=== PATIENT | female | born 1935 | race Caucasian/White ===

== ENCOUNTER → 2017-03-07 | Outpatient (CLI) | payer MEDICARE, BC ==
[~2017-03-07] MED LIST: ASPIRIN 32325 MG/TAB PO; ASPIRIN E.C. 8181 MG PO; CELEBREX 200MG200 MG PO; COZAAR100 MG PO; CRESTOR10 MG PO; CRESTOR20 MG PO; GLUCOPHAGE1000 MG PO; LEVAQUIN 5500 MG/TA1 PO; LEVOTHYROXIN0.112 MG PO; LOPRESSOR 225 MG/TAB PO; LYRICA 150MG C150 MG PO; MAREPA1200 MG PO; NEXIUM 40MG40 MG PO; NEXIUM I.V. 40M40 MG IV; NORVASC 5MG5 MG/TAB PO; OMEGA 31000 MG PO; PAXIL 20MG20 MG PO; PLAVIX 75MG TAB75 MG PO; PREDNISONE10 MG PO; PRILOSEC 20MG20 MG PO; PROBIOTIC FORMU1 CAP PO; SYSTANE ULTRA OP; TIROSINT125 MCG PO; TOPROL XL 25MG25 MG PO; TRIAMCINOLONE0.025%; TRIAMTERENE AND1 TA1 PO; VENTOLIN0.09 MG IH; VITAMIN D 1001000 IU PO
== END ==
LOC: COL.VAS 10:54
DX: I65.23 Occlusion and stenosis of bilateral carotid arteries (principal)

== ENCOUNTER → 2018-03-18 | Outpatient (CLI) | payer MEDICARE, BC | LOC: COL.VAS 12:34 | DX: I65.23 Occlusion and stenosis of bilateral carotid arteries (principal) ==

== ENCOUNTER 2018-04-10 08:00 | Outpatient (RCR) | payer MEDICARE, BC ==
[2018-04-12] MEDS ORDERED: COZAAR100 MG PO (18:08)
[2018-04-12] MEDS ORDERED: LIPITOR 40MG TA40 MG PO (18:08)
[2018-04-12] MEDS ORDERED: B-121000 MCG PO (18:10)
[2018-04-12] MEDS ORDERED: GINGER500 MG PO (18:10)
[2018-04-12] MEDS ORDERED: FLORAJEN A20 Billion (18:10)
[2018-04-15] MEDS ORDERED: LEVOXYL0.1 MG PO (11:00)
== END 2018-05-28 | disposition home or self-care (01) ==
LOC: MKS.ESL.PT
DX: H81.12 Benign paroxysmal vertigo, left ear (principal)
CPT/HCPCS: G8981-GP; G8982-GP; G8983-GP

== ENCOUNTER 2018-04-12 17:35 | Inpatient (IN) | payer MEDICARE, BC ==
[~2018-04-12] VITALS: Ht 152.4 cm; Wt 96.3 kg
[2018-04-12] VITALS (59 sets, daily range): BP systolic 144; BP diastolic 70; PULSE 70; TEMP 97.8; O2SAT 92–97
[2018-04-12] MEDS ORDERED: LIPITOR 40MG TA40 MG PO (18:08)
[2018-04-12] MEDS ORDERED: COZAAR100 MG PO (18:08)
[2018-04-12 18:09] LABS: BASO % 0.4 % (0.0-2.0); EOS # 0.2 (0.0-0.7); EOS % 2.2 % (0-4.0); GRAN # 4.6 (1.4-6.5); GRAN % 60.2 % (42.2-75.2); HEMATOCRIT 33.3 % (37.0-47.0); HEMOGLOBIN 11.6 g/dl (12.5-16.0); LYMPH # 1.8 (1.2-3.4); LYMPH % 23.1 % (20.0-51.0); MEAN CELL VOLUME 87 fl (80.0-100.0); MEAN CORPUSCULAR HEMOGLOBIN 30 pg (27.0-31.0); MEAN CORPUSCULAR HGB CONC 35 g/dl (33.0-37.0); MEAN PLATELET VOLUME 10.1 fl (7.4-10.4); MONO % 13.6 % (1.7-9.3); PLATELET COUNT 263 K/mm3 (130-400); RED BLOOD COUNT 3.84 M/mm3 (4.10-5.30); REDCELL DISTRIBUTION WIDTH-CV 13.9 % (11.5-14.5)
[2018-04-12] MEDS ORDERED: B-121000 MCG PO (18:10)
[2018-04-12] MEDS ORDERED: GINGER500 MG PO (18:10)
[2018-04-12] MEDS ORDERED: FLORAJEN A20 Billion (18:10)
[2018-04-12 18:22] LABS: ALANINE AMINOTRANSFERASE 75 U/L (9-52); ALBUMIN 4.1 gm/dL (3.5-5.0); ALKALINE PHOSPHATASE 46 U/L (50-136); ANION GAP 12 mmol/L (7-16); AST,SGOT 71 U/L (15-37); BILIRUBIN,TOTAL 0.5 mg/dL (0.0-1.0); BLOOD UREA NITROGEN 30 mg/dL (7-17); CALCIUM 8.6 mg/dL (8.4-10.2); CARBON DIOXIDE 20 mmol/L (22-30); CREATINE KINASE 236 U/L (30-135); CREATININE, serum 0.98 mg/dL (0.52-1.25); GLUCOSE 118 mg/dL (74-106); MAGNESIUM 1.4 mg/dL (1.6-2.3); POTASSIUM 4.8 mmol/L (3.4-5.0); TOTAL PROTEIN 7.2 gm/dL (6.4-8.2)
[2018-04-12 18:39] LABS: CHLORIDE 88 mmol/L (98-107); SODIUM 119 mmol/L (137-145); TROPONIN-I < 0.012 ng/mL (0.000-0.034)
[2018-04-12 22:44] LABS: TSH w REFLEX 0.116 uIU/mL (0.465-4.680)
[2018-04-13] VITALS (538 sets, daily range): BP systolic 121–158; BP diastolic 49–76; PULSE 56–84; TEMP 97.9–98.9; O2SAT 84–99
[2018-04-13 00:29] LABS: SODIUM 127 mmol/L (137-145)
[2018-04-13 00:46] LABS: TROPONIN-I < 0.012 ng/mL (0.000-0.034)
[2018-04-13 05:35] LABS: BASO % 0.4 % (0.0-2.0); EOS # 0.2 (0.0-0.7); EOS % 2.4 % (0-4.0); GRAN # 3.7 (1.4-6.5); GRAN % 55.2 % (42.2-75.2); HEMOGLOBIN 12.1 g/dl (12.5-16.0); LYMPH # 1.9 (1.2-3.4); LYMPH % 27.8 % (20.0-51.0); MEAN CELL VOLUME 88 fl (80.0-100.0); MEAN CORPUSCULAR HEMOGLOBIN 31 pg (27.0-31.0); MEAN CORPUSCULAR HGB CONC 35 g/dl (33.0-37.0); MEAN PLATELET VOLUME 9.7 fl (7.4-10.4); MONO # 0.9 (0.1-0.6); MONO % 13.8 % (1.7-9.3); PLATELET COUNT 245 K/mm3 (130-400); RED BLOOD COUNT 3.97 M/mm3 (4.10-5.30); REDCELL DISTRIBUTION WIDTH-CV 13.8 % (11.5-14.5)
[2018-04-13 05:36] LABS: HEMATOCRIT 34.9 % (37.0-47.0)
[2018-04-13 05:46] LABS: BILIRUBIN,TOTAL 0.7 mg/dL (0.0-1.0); CALCIUM 9.4 mg/dL (8.4-10.2); CREATININE, serum 0.81 mg/dL (0.52-1.25); TOTAL PROTEIN 7.1 gm/dL (6.4-8.2)
[2018-04-14 00:17] VITALS: BP 115/81; PULSE 78; TEMP 98.2
[2018-04-14 04:36] VITALS: BP 142/67; PULSE 69; TEMP 97.8
[2018-04-14 07:14] LABS: BILIRUBIN,TOTAL 0.5 mg/dL (0.0-1.0); CALCIUM 9.5 mg/dL (8.4-10.2); CREATININE, serum 1.01 mg/dL (0.52-1.25); MAGNESIUM 1.7 mg/dL (1.6-2.3); TOTAL PROTEIN 7.1 gm/dL (6.4-8.2)
[2018-04-14 12:26] VITALS: BP 153/58; PULSE 72; TEMP 98.2
[2018-04-14 16:12] VITALS: BP 148/56; PULSE 71; TEMP 97.8
[2018-04-14 19:59] VITALS: BP 133/54; PULSE 73; TEMP 98.5
[2018-04-14 23:39] VITALS: BP 118/61; PULSE 74; TEMP 98.4
[2018-04-15 04:18] VITALS: BP 109/65; PULSE 64; TEMP 97.9
[2018-04-15 07:18] VITALS: BP 100/52; PULSE 108; TEMP 98.1
[2018-04-15 07:26] LABS: ALBUMIN 3.6 gm/dL (3.5-5.0); BILIRUBIN,TOTAL 0.5 mg/dL (0.0-1.0); CALCIUM 8.8 mg/dL (8.4-10.2); CREATININE, serum 0.88 mg/dL (0.52-1.25); TOTAL PROTEIN 6.6 gm/dL (6.4-8.2)
[2018-04-15] MEDS ORDERED: LEVOXYL0.1 MG PO (11:00)
== END 2018-04-15 12:16 | disposition home or self-care (01) | DRG 309 ==
LOC: COL.ER 17:35 → ICU 19:37 → MEDICAL 04-13 13:23
PROVIDERS: Emergency Medicine; Internal Medicine
DX: R00.1 Bradycardia, unspecified (principal); Z68.41 Body mass index [BMI] 40.0-44.9, adult; E87.1 Hypo-osmolality and hyponatremia; I69.354 Hemiplegia and hemiparesis following cerebral infarction affecting left non-dominant side; I10 Essential (primary) hypertension; I08.0 Rheumatic disorders of both mitral and aortic valves; E11.42 Type 2 diabetes mellitus with diabetic polyneuropathy; E66.01 Morbid (severe) obesity due to excess calories; E83.42 Hypomagnesemia
CPT/HCPCS: J1650; J3475; J7030

== ENCOUNTER → 2018-12-10 | Outpatient (CLI) | payer MEDICARE, BC ==
[~2018-12-10] MED LIST changes: +B-121000 MCG PO; +FLORAJEN A20 Billion; +GINGER500 MG PO; +LEVOXYL0.1 MG PO; +LIPITOR 40MG TA40 MG PO
== END ==
LOC: COL.RAD 12-04 13:30
DX: N18.3 Chronic kidney disease, stage 3 (moderate) (principal)

== ENCOUNTER → 2019-03-24 | Outpatient (CLI) | payer MEDICARE, BC | LOC: COL.VAS 12:26 | DX: I65.23 Occlusion and stenosis of bilateral carotid arteries (principal) ==

== ENCOUNTER 2019-05-26 09:15 | Outpatient (RCR) | payer MEDICARE, BC | END 2019-05-26 15:29 | disposition home or self-care (01) | LOC: MKS.ESL.PT 09:15 | DX: R26.81 Unsteadiness on feet (principal) ==

== ENCOUNTER 2020-09-25 11:43 | Emergency (ER) | payer MEDICARE, BC ==
[~2020-09-25] VITALS: Ht 152.4 cm; Wt 86.4 kg
[2020-09-25 12:07] VITALS: TEMP 98.5
[2020-09-25 12:46] LABS: BASO % 0.2 % (0.0-2.0); EOS % 0.6 % (0-4.0); GRAN # 3.7 (1.4-6.5); GRAN % 67.5 % (42.2-75.2); HEMATOCRIT 37.5 % (37.0-47.0); HEMOGLOBIN 12.9 g/dl (12.5-16.0); LYMPH # 1.1 (1.2-3.4); LYMPH % 19.9 % (20.0-51.0); MEAN CELL VOLUME 92 fl (80.0-100.0); MEAN CORPUSCULAR HEMOGLOBIN 32 pg (27.0-31.0); MEAN CORPUSCULAR HGB CONC 34 g/dl (33.0-37.0); MEAN PLATELET VOLUME 9.2 fl (7.4-10.4); MONO # 0.6 (0.1-0.6); MONO % 11.4 % (1.7-9.3); PLATELET COUNT 266 K/mm3 (130-400); RED BLOOD COUNT 4.09 M/mm3 (4.10-5.30); REDCELL DISTRIBUTION WIDTH-CV 14.7 % (11.5-14.5)
[2020-09-25 12:59] LABS: ALANINE AMINOTRANSFERASE 29 U/L (4-34); ALBUMIN 4.7 gm/dL (3.5-5.0); ALKALINE PHOSPHATASE 52 U/L (50-136); ANION GAP 11 mmol/L (7-16); AST,SGOT 38 U/L (15-37); BILIRUBIN,TOTAL 0.8 mg/dL (0.0-1.0); BLOOD UREA NITROGEN 17 mg/dL (7-17); CALCIUM 9.8 mg/dL (8.4-10.2); CARBON DIOXIDE 23 mmol/L (22-30); CHLORIDE 98 mmol/L (98-107); CREATININE, serum 0.81 (0.52-1.25); GLUCOSE 115 mg/dL (74-106); SODIUM 132 mmol/L (137-145)
[2020-09-25 13:18] LABS: TROPONIN-I < 0.012 ng/mL (0.000-0.035)
[2020-09-25 13:47] LABS: COLLECTION METHOD CATHETER
[2020-09-25 13:53] LABS: PH 5 (5-8); SQUAMOUS EPITHELIAL 0-2 /hpf; URINE APPEARANCE Clear; URINE BACTERIA None Seen /hpf; URINE BILIRUBIN Negative (NEGATIVE); URINE BLOOD 1+ (NEGATIVE); URINE COLOR Straw; URINE GLUCOSE Negative (NEGATIVE); URINE KETONE Negative (NEGATIVE); URINE LEUKOCYTE ESTERASE Negative (NEGATIVE); URINE NITRATE Negative (NEGATIVE); URINE PROTEIN(semi-quant) 1+ (NEGATIVE); URINE RBC 0-2 /hpf; URINE UROBILINOGEN Negative (NEGATIVE)
[2020-09-25 18:30] VITALS: BP 161/96; PULSE 96
== END 2020-09-25 18:30 | disposition short-term general hospital (02) ==
LOC: COL.ER 11:43 → SURG 15:06 → COL.ER 15:06
PROVIDERS: Emergency Medicine
DX: M48.061 Spinal stenosis, lumbar region without neurogenic claudication (principal); E87.1 Hypo-osmolality and hyponatremia; L30.4 Erythema intertrigo; I10 Essential (primary) hypertension; E03.9 Hypothyroidism, unspecified; Z79.890 Hormone replacement therapy; E78.5 Hyperlipidemia, unspecified; G62.9 Polyneuropathy, unspecified; I08.0 Rheumatic disorders of both mitral and aortic valves; E11.9 Type 2 diabetes mellitus without complications; E66.01 Morbid (severe) obesity due to excess calories; M19.90 Unspecified osteoarthritis, unspecified site; Z86.718 Personal history of other venous thrombosis and embolism; Z86.73 Personal history of transient ischemic attack (TIA), and cerebral infarction without residual deficits; Z79.02 Long term (current) use of antithrombotics/antiplatelets; Z88.2 Allergy status to sulfonamides; Z20.822 Contact with and (suspected) exposure to COVID-19; Z68.37 Body mass index [BMI] 37.0-37.9, adult
CPT/HCPCS: J7030; Q9967

== ENCOUNTER → 2022-09-12 | Outpatient (CLI) | payer MEDICARE, BC ==
[~2022-09-12] MED LIST changes: +CELEBREX 1100 MG/CAP PO; -CELEBREX 200MG200 MG PO; +DESYREL 50MG50 MG PO; +LASIX 40MG TABL40 MG PO; +NORCO 325 MG-51 TAB PO; +SYNTHROID0.088 MG/T PO; +SYNTHROID0.1 MG/TAB PO
== END ==
LOC: COL.VAS 09:00
DX: I51.7 Cardiomegaly (principal); I34.0 Nonrheumatic mitral (valve) insufficiency; I34.81 Nonrheumatic mitral (valve) annulus calcification

== ENCOUNTER 2022-10-03 21:04 | Observation (INO) | payer MEDICARE, BC, MEDICAID ==
[~2022-10-03] VITALS: Ht 149.9 cm; Wt 90.4 kg
[~2022-10-03 21:04] MED LIST changes: -DESYREL 50MG50 MG PO; -LASIX 40MG TABL40 MG PO; -NORCO 325 MG-51 TAB PO; -SYNTHROID0.088 MG/T PO; -SYNTHROID0.1 MG/TAB PO
[2022-10-03 23:22] LABS: HEMATOCRIT 38.6 % (37.0-47.0); HEMOGLOBIN 12.4 g/dl (12.5-16.0); MEAN CELL VOLUME 100 fl (80.0-100.0); MEAN CORPUSCULAR HEMOGLOBIN 32 pg (27-31); MEAN CORPUSCULAR HGB CONC 32 g/dl (33.0-37.0); MEAN PLATELET VOLUME 10.7 fl (7.4-10.4); PLATELET COUNT 185 K/mm3 (130-400); RED BLOOD COUNT 3.86 M/mm3 (4.10-5.30); REDCELL DISTRIBUTION WIDTH-CV 15.1 % (11.5-14.5)
[2022-10-03 23:39] LABS: ALBUMIN 4.3 gm/dL (3.4-4.8); BILIRUBIN,TOTAL 0.6 mg/dL (0.2-1.2); C-REACTIVE PROTEIN 0.37 mg/dL (0.00-0.50); CALCIUM 9.9 mg/dL (8.4-10.2); CREATININE, serum 0.88 mg/dL (0.57-1.11); POTASSIUM 4.2 mmol/L (3.5-4.5); TOTAL PROTEIN 8.2 gm/dL (6.2-8.1)
[2022-10-03 23:42] LABS: EOSINOPHIL 1 % (0-4); HYPOCHROMIA 1+; LYMPHOCYTE 22 % (20.0-51.0); METAMYELOCYTE 1 % (0-0); NEUTROPHILS 68 % (42.0-75.2); PLATELET ESTIMATE NORMAL (NORMAL)
[2022-10-04] VITALS (13 sets, daily range): BP systolic 111–137; BP diastolic 51–80; PULSE 67–91; TEMP 97.7–98.5
[2022-10-04 07:21] LABS: HEMOGLOBIN 11.3 g/dl (12.5-16.0)
[2022-10-04 07:25] LABS: HEMATOCRIT 35.1 % (37.0-47.0)
--- NOTE | 2022-10-04 08:30 | NUR ---
Assessment complete. A&Ox3. Denies pain/nausea/shortness of breath. VS remain stable-BP 115/50s. Currently on O2@2L/NC during sleep-usually wears CPAP at [facility]. States family will be bringing it in leater today. Currently is NPO until surgery sees. AM meds not given-blood pressure 115/50s and NPO status. Will monitorl BP closely. Plan of care discussed for this shift to include meds/consult/calling for questions/concerns. Verbalizes understanding. Call light in reach. Will monitor.
--- NOTE | 2022-10-04 08:50 | NUR ---
Voice mail left for Dr Sanchez about Surgical Consult.
[2022-10-04 09:30] LABS: HEMOGLOBIN 11.5 g/dl (12.5-16.0)
[2022-10-04 09:32] LABS: HEMATOCRIT 36.2 % (37.0-47.0)
--- NOTE | 2022-10-04 10:59 | NUR ---
Initial visit; Patient thanked [employer] for looking in on her and offering prayer and God's blessings and to keep her in [employer]'s prayers. Patient is a very sweet lady with a lot of good family support.
--- NOTE | 2022-10-04 13:15 | NUR ---
Discharge instructions given both verbal and handwritten. Discussed f/u appt, home medications, s/s of infection and when to return to the ED. Verbalizes understanding/denies questions/concerns.
[2022-10-04] MEDS ORDERED: LASIX 40MG TABL40 MG PO (13:45)
[2022-10-04] MEDS ORDERED: NORCO 325 MG-51 TAB PO (13:45)
[2022-10-04] MEDS ORDERED: DESYREL 50MG50 MG PO (13:45)
[2022-10-04] MEDS ORDERED: SYNTHROID0.088 MG/T PO (13:48)
[2022-10-04] MEDS ORDERED: SYNTHROID0.1 MG/TAB PO (13:48)
[2022-10-05] VITALS: BP 118/62; PULSE 76; TEMP 98.5
[2022-10-05 03:35] VITALS: BP 115/46; PULSE 73; TEMP 97.9
[2022-10-05 06:53] LABS: HEMATOCRIT 34.1 % (37.0-47.0); HEMOGLOBIN 10.7 g/dl (12.5-16.0); MEAN CELL VOLUME 103 fl (80.0-100.0); MEAN CORPUSCULAR HEMOGLOBIN 32 pg (27-31); MEAN CORPUSCULAR HGB CONC 31 g/dl (33.0-37.0); MEAN PLATELET VOLUME 11.5 fl (7.4-10.4); PLATELET COUNT 113 K/mm3 (130-400); RED BLOOD COUNT 3.32 M/mm3 (4.10-5.30); REDCELL DISTRIBUTION WIDTH-CV 15.4 % (11.5-14.5)
[2022-10-05 06:54] LABS: CREATININE, serum 0.74 mg/dL (0.57-1.11)
[2022-10-05 06:55] LABS: CALCIUM 8.7 mg/dL (8.4-10.2); POTASSIUM 4.2 mmol/L (3.5-4.5)
[2022-10-05 07:11] LABS: ANISOCYTOSIS 1+; BAND 4 % (0-10); EOSINOPHIL 1 % (0-4); NEUTROPHILS 69 % (42.0-75.2); PLATELET ESTIMATE NORMAL (NORMAL)
[2022-10-05 07:14] VITALS: BP 141/70; PULSE 63; TEMP 98.2
[2022-10-05 07:14] LABS: LYMPHOCYTE 12 % (20.0-51.0)
--- NOTE | 2022-10-05 08:30 | NUR ---
Pt assessment complete. Pt is sitting up in bed upon entry, she is A/O x4. Her breathing is even and unlabored on RA, pt denies SOB. No pain at this time. States her bleeding is better. POC discussed with patient who verbalizes understanding. No needs at this time. Call light within reach.
--- NOTE | 2022-10-05 09:39 | NUR ---
Follow-up visit; Patient thanked [employer] for looking in on her again and said she is doing well and is returning to the [facility]. [employer] [place] [employer] wished her well and offered God's blessings.
--- NOTE | 2022-10-05 10:04 | NUR ---
Pt report given to [facility]. IV dc'd from Joelle rodriguez. Pt wheeled out of facility by a staff member at this time.
--- NOTE | 2022-10-05 10:53 | NUR ---
[employer]inery Teacher notified that patient is ready for discharge and is a resident of [facility]. JOVANY contacted [facility] and faxed clinical updates with discharge orders. DEIRDRE Galvan at [place] advised patient's family typically transport patient. JOVANY contacted patient's daughter, Earline who advised her brother, Phu will be here this morning to take patient back to [place]. Patient has DPOA-HC in EMR designating both of her children, Earline and Phu. Discharge Plan: Return to [facility]
== END 2022-10-05 10:05 ==
LOC: COL.ER 21:04 → MEDICAL 10-04 01:12
PROVIDERS: Emergency Medicine; Student in an Organized Health Care Education/Training Program; ADMIT Student in an Organized Health Care Education/Training Program
DX: K92.1 Melena (principal); K64.0 First degree hemorrhoids; R11.0 Nausea; I10 Essential (primary) hypertension; E03.9 Hypothyroidism, unspecified; E78.5 Hyperlipidemia, unspecified; M19.90 Unspecified osteoarthritis, unspecified site; G47.33 Obstructive sleep apnea (adult) (pediatric); I65.29 Occlusion and stenosis of unspecified carotid artery; E66.01 Morbid (severe) obesity due to excess calories; E11.42 Type 2 diabetes mellitus with diabetic polyneuropathy; I08.0 Rheumatic disorders of both mitral and aortic valves; D47.2 Monoclonal gammopathy; Z86.73 Personal history of transient ischemic attack (TIA), and cerebral infarction without residual deficits; Z79.899 Other long term (current) drug therapy; Z79.01 Long term (current) use of anticoagulants; Z79.890 Hormone replacement therapy; Z87.738 Personal history of other specified (corrected) congenital malformations of digestive system
CPT/HCPCS: G0378; J2405; J2704; J7030; Q9967